=== PATIENT | female | born 1935 | race Hispanic/Latino ===

== ENCOUNTER 2019-02-15 05:53 | Day surgery (SDC) | payer OTHER ==
[2019-02-12 14:57] LABS: EOSINOPHILS % (AUTO) 3.6 % (0.0-8.0); HEMATOCRIT 39.4 % (36-48); MEAN CORPUSCULAR HEMOGLOBIN 32.7 pg (27.0-33.0); MEAN CORPUSCULAR HGB CONC 33.7 g/dL (32.0-36.0); MEAN CORPUSCULAR VOLUME 97.2 fL (79-99); NEUTROPHILS % (AUTO) 50.4 % (40.0-77.0); NUCLEATED RED BLOOD CELLS 0.2 % (0.0-0.19); PLATELET COUNT (AUTO) 283 K/uL (130-400); RED BLOOD CELL COUNT(AUTO) 4.05 MIL/uL (4.00-5.50); RED CELL DISTRIBUTION WIDTH 12.1 % (11.0-15.5); WHITE BLOOD COUNT (AUTO) 5.2 K/uL (4.8-10.8)
[2019-02-12 14:58] VITALS: BP 133/79
[2019-02-12 15:01] LABS: POTASSIUM 4.2 mmol/L (3.5-5.1)
[2019-02-12 15:06] LABS: APPEARANCE,URINE CLOUDY (CLEAR); BILIRUBIN,URINE NEGATIVE (NEGATIVE); COLOR,URINE YELLOW (YELLOW); GLUCOSE, URINE (UA) NEGATIVE (NEGATIVE); KETONES,URINE NEGATIVE (NEGATIVE); LEUKOCYTE ESTERASE ,URINE LARGE (NEGATIVE); NITRATE,URINE NEGATIVE (NEGATIVE); OCCULT BLOOD,URINE TRACE-INTACT (NEGATIVE); PH,URINE 6.5 (5.0-8.0); PROTEIN,URINE NEGATIVE (NEGATIVE)
[2019-02-12 15:08] LABS: INR 1.02 (0.85-1.15); PARTIAL THROMBOPLASTIN TIME 28.7 SEC (26.3-35.5); PROTHROMBIN TIME 10.7 SEC (9.6-11.6)
[2019-02-12 15:47] LABS: BACTERIA,URINE Few /HPF (None Seen); MUCUS,URINE Few LPF (None Seen); SQUAMOUS EPITHELIAL CELL,UR Few /HPF (0-2)
[~2019-02-15] VITALS: Ht 144.8 cm; Wt 54.2 kg
[2019-02-15] VITALS (8 sets, daily range): BP systolic 114–140; BP diastolic 52–73
[~2019-02-15 05:53] MED LIST: AMLO10TA7 PO; ASPI-555 PO; ISOS60TA4 PO; METO50TA18 PO; NITR0.4T50 SL; PRAV80TA21 PO; SODIUM CHLORIDE 0.9% 500ML 500 ML IV SCH
[2019-02-15] MEDS ORDERED: SODIUM CHLORIDE 0.9% 1000ML 1,000 ML IV ONE (06:15)
[2019-02-15] MEDS ORDERED: BRIM5DRO OP (07:22)
[2019-02-15] MEDS ORDERED: LATANOPROST OP (07:22)
--- NOTE | 2019-02-15 07:36 | NUR ---
UA INFORMED LEMUEL WALTON OF ABNORMAL UA. ORDERS RECEIVED TO GIVE 1 GRAM OF ROCEPHIN IV PRIOR TO PROCEDURE.
[2019-02-15] MEDS ORDERED: CEFTRIAXONE SODIUM 1 GM ONE (07:37)
[2019-02-15] MEDS ORDERED: CEFTRIAXONE SODIUM 1 GM IVP SCH (07:45)
--- NOTE | 2019-02-15 09:20 | NUR ---
PROCEDURE PT TAKEN TO PROCEDURE VIA BED BY Dolly LOBATO RN.
[2019-02-15] MEDS ORDERED: IOHEXOL 350 MG/ML 100ML INFUS..BTL IV ONE (09:33)
[2019-02-15] MEDS ORDERED: LIDOCAINE HCL 2% 20ML ONE (09:33)
[2019-02-15] MEDS ORDERED: IOHEXOL-350 50ML VIAL IV ONE (09:33)
[2019-02-15] MEDS ORDERED: NITROGLYCERIN 5 MG/ML 10 ML VIAL IV ONE (09:33)
[2019-02-15] MEDS ORDERED: MIDAZOLAM HCL 1 MG/ML 2ML VIAL ONE (09:39)
[2019-02-15] MEDS ORDERED: SODIUM CHLORIDE 0.9% 1000ML 1,000 ML IV SCH (09:56)
[2019-02-15] MEDS ORDERED: NITROGLYCERIN 0.4 MG SL TAB SL PRN (10:00)
[2019-02-15] MEDS ORDERED: GLUCAGON 1MG KIT 1 MG ML IM PRN (10:00)
[2019-02-15] MEDS ORDERED: DEXTROSE 50%-WATER 50 ML DISP.SYRIN IV PRN (10:00)
--- NOTE | 2019-02-15 10:20 | NUR ---
RECEIVE PT RECEIVED FROM DISPENSING AND MEASURING OPTICIAN VIA BED AWAKE ORIENTED X3, DROWSY. PT STABLE. NOT IN ANY APPARENT DISTRESS. CATH SITE TO RIGHT GROIN SOFT, DRESSING DRY AND INTACT, NO OOZING NO HEMATOMA NOTED. Addendum: 02/15/19 at 1121 by MICHELLE SINGH RN RN ADDENDUM: PT INSTRUCTED TO KEEP RIGHT LEG STRAIGHT AND NOT TO ELEVATE HEAD. ALSO INSTRUCTED FAMILY MEMBERS ALSO INSTRUCTED TO REMIND PT, VERBALIZED UNDERSTANDING.
--- NOTE | 2019-02-15 11:45 | NUR ---
ASSESS PT AWAKE ALERT. TOLERATING ORAL FLUIDS WELL. STATES SHE IS READY TO EAT HER LUNCH. DAUGHTER WILL HELP IN FEEDING PT.
--- NOTE | 2019-02-15 11:50 | NUR ---
HEADACHE PT COMPLAINS OF SLIGHT HEADACHE, SCALE OF 4, WANTS TYLENOL. CALLED LEMUEL WALTON AND NOTIFIED OF PT'S COMPLAINT, OKAY TO GIVE TYLENOL 650 MG PO X1 NOW.
[2019-02-15] MEDS ORDERED: ACETAMINOPHEN 325 MG TAB ONE (11:56)
[2019-02-15] MEDS ORDERED: ACETAMINOPHEN 325 MG TAB PO SCH (12:00)
--- NOTE | 2019-02-15 13:00 | NUR ---
ACTIVITY PT POSITIONED SITTING UP ON BED, STABLE, NO COMPLAINTS MADE. CATH SITE TO RIGHT GROIN REMAINS SOFT, DRESSING DRY AND INTACT, NO OOZING NO HEMATOMA NOTED. DISCHARGE INSTRUCTIONS GIVEN TO DAUGHTER, ALSO DEMONSTRATED TO DAUGHTER ON HOW TO MONITOR CATH SITE FOR BLEEDING, HEMATOMA, APPLY DIRECT PRESSURE AND CALL 911. VERBALIZED UNDERSTANDING.
--- NOTE | 2019-02-15 14:00 | NUR ---
REPORT REPORT GIVEN TO JESUS LIM. PT SITTING ON BED. NO COMPLAINTS MADE. PT STATES SHE WILL URINATE ONCE UP AND GETTING DRESSED FOR DISCHARGE.
== END 2019-02-15 14:40 | disposition home or self-care (01) ==
LOC: DAH 05:53
PROVIDERS: ATTEND Internal Medicine Cardiovascular Disease
DX: I25.118 Atherosclerotic heart disease of native coronary artery with other forms of angina pectoris (principal); I11.0 Hypertensive heart disease with heart failure; I50.33 Acute on chronic diastolic (congestive) heart failure; K21.9 Gastro-esophageal reflux disease without esophagitis; M19.90 Unspecified osteoarthritis, unspecified site; Z98.49 Cataract extraction status, unspecified eye; Z79.899 Other long term (current) drug therapy; Z98.890 Other specified postprocedural states; E78.5 Hyperlipidemia, unspecified; I48.92 Unspecified atrial flutter
CPT/HCPCS: 36415; 71045; 80048; 81001; 85025; 85610; 85730; 93005; 93458; A4218; C1760; C1894 ×2; J0696; J1644; J2250; J3490 ×2; J7030; Q9965; Q9967 ×2; 99156; 99157

== ENCOUNTER → 2020-07-21 | Outpatient (CLI) | payer MEDICARE, OTHER ==
[~2020-07-21] MED LIST changes: -ASPI-555 PO; +ASPI-556 PO; +BRIM5DRO OP; +IOHEXOL 350 MG/ML 100ML INFUS..BTL IV ONE; +LATANOPROST OP; -SODIUM CHLORIDE 0.9% 500ML 500 ML IV SCH
== END | disposition home or self-care (01) ==
LOC: RAH 08:24
PROVIDERS: ATTEND Internal Medicine Medical Oncology
DX: C49.4 Malignant neoplasm of connective and soft tissue of abdomen (principal); N28.1 Cyst of kidney, acquired; N26.1 Atrophy of kidney (terminal); K57.30 Diverticulosis of large intestine without perforation or abscess without bleeding; N85.8 Other specified noninflammatory disorders of uterus; M43.8X6 Other specified deforming dorsopathies, lumbar region
CPT/HCPCS: 74177; Q9967